=== PATIENT | female | born 1995 | race Two or more races ===

== ENCOUNTER 2022-09-01 12:00 | Emergency (ER) | payer BC, OTHER ==
[~2022-09-01] VITALS: Ht 167.6 cm; Wt 99.3 kg
[2022-09-01 13:19] VITALS: BP 110/82
[2022-09-01] MEDS ORDERED: IBUP800T27 PO (14:03)
[2022-09-01] MEDS ORDERED: IBUPROFEN 800 MG TAB PO ONE (14:15)
== END 2022-09-01 14:11 | disposition home or self-care (01) ==
LOC: ER 12:00
DX: S40.022A Contusion of left upper arm, initial encounter (principal); S40.021A Contusion of right upper arm, initial encounter; S00.83XA Contusion of other part of head, initial encounter; Y04.8XXA Assault by other bodily force, initial encounter; Y93.89 Activity, other specified; Y92.89 Other specified places as the place of occurrence of the external cause; Y99.8 Other external cause status
CPT/HCPCS: 70450